=== PATIENT | female | born 1945 | race African-American/Black ===

== ENCOUNTER 2017-05-20 10:26 | Emergency (ER) | payer OTHER ==
--- NOTE | ~2017-05-20 | EKG ---
PATIENT: CHAMP CHAKRABORTY UNIT #: [id number] Ventricular Rate: 65 BPM Atrial Rate: 65 BPM P-R Interval: 124 ms QRS Duration: 66 ms Q-T Interval: 356 ms QTC Calculation(Bezet): 370 ms P [place]: 69 degrees Calculated R [place]: 12 degrees Calculated T [place]: 111 degrees Diagnosis Line: Normal sinus rhythm Diagnosis Line: Nonspecific T wave abnormality Diagnosis Line: Abnormal ECG Diagnosis Line: When compared with ECG of 17-NOV-2013 23:14, Diagnosis Line: T wave inversion now evident in Anterior leads Diagnosis Line: QT has shortened Diagnosis Line: Confirmed by BRIAN COREY MD ([id number]) on Diagnosis Line: 05/21/2017 2:57:01 PM INTERPRETING : WOO
--- NOTE | ~2017-05-20 | CR72 ---
[facility] A Service of [facility] RADIOLOGY TEXT RESULTS PATIENT: CHAMP CHAKRABORTY LOCATION: [facility] : 47 UNIT #: [id number] AGE: [address]: Zachary Humphries MD SEX: F ORDER DR: [id number] [facility] [address] [place], [place] [address] [id number] E MR#: [id number] Acc #: [id number] NAME: CHAMP CHAKRABORTY : 1945 SEX: F STUDY DATE/TIME: 05/20/2017 11:27 UNIT: [facility] ROOM: STUDY DESCRIPTION: CR Chest Single View Portable Attending Physician: Zachary Humphries M.D. Ordering Physician: Zachary Humphries M.D. Primary Care Physician: Maynor Ha M.D. MEDICAL IMAGING REPORT This report is preliminary unless electronic signature is present EXAM Portable chest INDICATIONS Chest pain today. Compared with 11/17/2013 FINDINGS Low-volume inspiration with bibasilar atelectasis. Mild interstitial pattern. Heart size probably stable. Atherosclerotic calcification aorta. IMPRESSION Low-volume inspiration with mild interstitial pattern. This may indicate interstitial edema. Correlate clinically. Dictated by... Delfin Drake M.D. THIS IS AN ELECTRONICALLY VERIFIED REPORT Delfin Drake M.D. at 05/23/2017 7:32 AM UMBERTO/laura TD: 05/20/2017 14:56 JOB #: [id number] MEDICAL IMAGING REPORT Page 1 of 1 COPY
[~2017-05-20 10:26] MED LIST: ARICEPT PO; CIPRO250 MG PO; COLACE PO; DONEPEZIL HCL10 MG PO; FLORASTOR250 M1 PO; KEPPRA500 M2 PO; LISINOPRIL10 MG PO; MILK OF MAGNESIA PO; SERTRALINE HCL25 M1 PO; SERTRALINE HCL25 M2 PO; TYLENOL325 M1 PO; VERAPAMIL ER120 M1 PO; VITAMIN B12 IM; ZESTRIL5 MG PO; [UNRECOGNIZED DRUG - OTHER] PO
[2017-05-20 11:57] LABS: POC - CKMB 1.5 ng/mL (0.0-7.9); POC - TROPONIN <0.05 ng/mL (<=0.05)
[2017-05-20 12:00] LABS: INR 1.1; PARTIAL THROMBOPLASTIN TIME 26.6 SECONDS (23.5-31.3); PROTHROMBIN TIME (PATIENT) 11.5 SECONDS (10.0-11.7)
[2017-05-20 12:01] LABS: BASOPHIL# 0.1 X10e3 (0-0.3); BASOPHIL% 0.7 % (0-2.5); EOSINOPHIL# 0.2 X10e3 (0-0.7); HEMATOCRIT 38.6 % (35.0-45.0); HEMOGLOBIN 12.6 gm/dL (12.0-16.0); LYMPHOCYTE# 1.6 X10e3 (1.0-3.5); LYMPHOCYTE% 18.6 % (17.0-45.0); MEAN CELL VOLUME 86.8 FL (83-96); MEAN CORPUSCULAR HEMOGLOBIN 28.2 PG (28-34); MEAN CORPUSCULAR HGB CONC 32.5 g/dL (30-36); MEAN PLATELET VOLUME 8.8 FL (6.5-11.5); MONOCYTE# 0.9 X10e3 (0-1.0); NEUTROPHIL# 5.9 X10e3 (1.5-7.1); NEUTROPHIL% 67.7 % (40-75); PLATELET COUNT 249 X10e3 (140-420); RED BLOOD COUNT 4.45 X10e (3.90-5.30); RED CELL DISTRIBUTION WIDTH 14.5 % (11.0-15.5); WHITE BLOOD COUNT 8.7 X10e3 (4.0-10.5)
[2017-05-20 12:06] LABS: DIFF IND NO
[2017-05-20 12:13] LABS: ALBUMIN SERUM 3.9 g/dL (3.5-5.0); BILIRUBIN, DIRECT 0.1 mg/dL (0.0-0.2); BILIRUBIN,INDIRECT 0.8 mg/dL (0.0-0.9); BILIRUBIN,TOTAL 0.9 mg/dL (0.2-2.0); CALCIUM SERUM 9.4 mg/dL (8.4-10.2); CREATININE SERUM 0.8 mg/dL (0.6-1.4); GLOM FILT RATE Estimated 86.7 mL/min (>60); POTASSIUM 4.2 mmol/L (3.5-5.1)
[2017-05-20 14:13] LABS: POC - CKMB 1.9 ng/mL (0.0-7.9); POC - TROPONIN <0.05 ng/mL (<=0.05)
== END 2017-05-20 15:35 | disposition home or self-care (01) ==
LOC: CED 10:26
PROVIDERS: Emergency Medicine
DX: R07.9 Chest pain, unspecified (principal); I10 Essential (primary) hypertension; G40.909 Epilepsy, unspecified, not intractable, without status epilepticus; F03.90 Unspecified dementia, unspecified severity, without behavioral disturbance, psychotic disturbance, mood disturbance, and anxiety
CPT/HCPCS: 36415; 71010; 80048; 80076; 82553; 84484; 85025; 85610; 85730; 93005; 99285